=== PATIENT | male | born 1985 | race American Indian/Alaskan Native ===

== ENCOUNTER 2017-05-20 14:08 | Emergency (ER) | payer SELFPAY ==
--- NOTE | 2017-05-20 14:37 | CPEKG ---
Heart Rate: 77 RR Interval: 779 P-R Interval: 132 QRSD Interval: 88 QT Interval: 360 QTC Interval: 408 P Packwood: 59 QRS Packwood: 38 T Wave Packwood: 38 EKG Severity - NORMAL ECG - EKG Impression: SINUS RHYTHM Electronically Signed By: Clarisse Salazar 20-May-2017 20:06:38
--- NOTE | 2017-05-20 15:17 | EDPHY ---
H & P Time Seen by Provider: 05/20/17 15:06 HPI/ROS: CHIEF COMPLAINT: Chest pain HISTORY OF PRESENT ILLNESS: The patient is a 31-year-old male who presents emergency department with ongoing chest pain for the past 2 months. He states it is intermittent. It is worse today. He has had constant for the past 3 hours. It is left-sided under his breast. It does not radiate. No shortness of breath or chest pain. No cough. No leg pain or swelling. No recent travel. It is not positional. It is not worse with a deep breath. REVIEW OF SYSTEMS: My complete review of systems is negative except as mentioned in the HPI. Past Medical/Surgical History: Denies Social history: The patient uses THC. Smoking Status: Never smoked Physical Exam: Vitals noted GENERAL: Well-appearing, in no acute distress, alert. HEENT: Eyes normal to inspection, normal pharynx, no signs of dehydration. NECK: No thyromegaly, no lymphadenopathy, supple. RESPIRATORY: Clear to auscultation bilaterally, no rales, rhonchi or wheezing. CVS: Regular rate and rhythm, no rubs, murmurs, or gallops. No chest wall pain. ABDOMEN: Soft, nontender, nondistended, no organomegaly. BACK: Normal to inspection, no CVA tenderness. SKIN: Normal color, no rash, warm, dry. No pallor. EXTREMITIES: No pedal edema, no calf tenderness, no Homans sign or cords, no joint swelling. NEURO/PSYCH: [Alert and oriented x3, normal mood and affect, normal motor sensory exam. Constitutional: Initial Vital Signs Heart Rate 77 05/20/17 14:22 Respiratory Rate 18 05/20/17 14:22 Blood Pressure 130/80 H 05/20/17 14:22 O2 Sat (%) 95 05/20/17 14:22 O2 Delivery Mode Room Air Allergies/Adverse Reactions: No Known Allergies Allergy (Unverified 05/20/17 14:25) Medical Decision Making - Diagnostics EKG Interpretation: EKG shows normal sinus rhythm, normal rate, normal axis, normal intervals. There are no ST or T-wave abnormalities. EKG is normal as interpreted by me. Imaging Results: Imaging Impressions Chest X-Ray 05/20/17 15:43 Impression: No significant radiographic abnormality. Specifically, a source for chest pain is not identified. ED Course/Re-evaluation: In the emergency department I discussed possible etiologies with the patient. I answered all his questions. An IV was placed. Laboratory studies, EKG and chest x-ray were ordered. Patient was given Toradol 30 mg IV. I reviewed the patient's laboratory studies. He had a mildly elevated white count. Troponin was negative. The chest x-ray: No acute disease noted. I rechecked the patient. He stated his pain improved. I discussed these results. I answered his questions. He is given warnings prior to leaving. He will return with worsening symptoms. Differential Diagnosis: My differential includes but is not limited to ACS, acute AR, pulmonary embolus , pneumonia, bronchitis, dissection, aneurysm, pericarditis, myocarditis, pleurisy - Data Points Laboratory Results: Laboratory Results 05/20/17 14:39 05/20/17 14:39 05/20/17 05/20/17 14:39 14:39 WBC 12.19 10^3/uL H 10^3/uL (3.80-9.50) RBC 5.02 10^6/uL 10^6/uL (4.40-6.38) Hgb 15.9 g/dL g/dL (13.7-17.5) Hct 45.4 % % (40.0-51.0) MCV 90.4 fL fL (81.5-99.8) MCH 31.7 pg pg (27.9-34.1) MCHC 35.0 g/dL g/dL (32.4-36.7) RDW 12.5 % % (11.5-15.2) Plt Count 217 10^3/uL 10^3/uL (150-400) MPV 10.7 fL fL (8.7-11.7) Neut % (Auto) 76.3 % H % (39.3-74.2) Lymph % (Auto) 14.8 % L % (15.0-45.0) Rosebud % (Auto) 7.0 % % (4.5-13.0) Eos % (Auto) 1.1 % % (0.6-7.6) Baso % (Auto) 0.4 % % (0.3-1.7) Nucleat RBC Rel Count 0.0 % % (0.0-0.2) Absolute Neuts (auto) 9.31 10^3/uL H 10^3/uL (1.70-6.50) Absolute Lymphs (auto) 1.80 10^3/uL 10^3/uL (1.00-3.00) Absolute Monos (auto) 0.85 10^3/uL H 10^3/uL (0.30-0.80) Absolute Eos (auto) 0.13 10^3/uL 10^3/uL (0.03-0.40) Absolute Basos (auto) 0.05 10^3/uL 10^3/uL (0.02-0.10) Absolute Nucleated RBC 0.00 10^3/uL 10^3/uL (0-0.01) Immature Gran % 0.4 % % (0.0-1.1) Immature Gran # 0.05 10^3/uL 10^3/uL (0.00-0.10) Sodium 141 mEq/L mEq/L (134-144) Potassium 4.1 mEq/L mEq/L (3.5-5.2) Chloride 110 mEq/L mEq/L (97-110) Carbon Dioxide 23 mEq/l mEq/l (22-31) Anion Gap 8 mEq/L mEq/L (8-16) BUN 14 mg/dL mg/dL (7-23) Creatinine 0.9 mg/dL mg/dL (0.7-1.3) Estimated GFR > 60 Glucose 110 mg/dL H mg/dL (70-100) Calcium 8.7 mg/dL mg/dL (8.5-10.4) Troponin I < 0.012 ng/mL ng/mL (0.000-0.034) Medications Given: Discontinued Medications Cephalexin HCl (Keflex) 500 mg PO EDNOW ONE PRN Reason: Protocol Stop: 05/20/17 15:22 Last Admin: 05/20/17 15:43 Dose: Not Given Sodium Chloride (Ns) 500 mls @ 1,000 mls/hr IV EDNOW ONE PRN Reason: Protocol Stop: 05/20/17 16:12 Last Admin: 05/20/17 15:51 Dose: 500 mls Ketorolac Tromethamine (Toradol) 30 mg IVP EDNOW ONE Stop: 05/20/17 15:44 Last Admin: 05/20/17 15:48 Dose: 30 mg Departure - Departure Disposition: Home, Routine, Self-Care Clinical Impression: Chest pain Qualifiers: Chest pain type: precordial pain Qualified Code(s): R07.2 - Precordial pain Condition: Good Instructions: Chest Pain (ED) Additional Instructions: Return with increasing chest pain, shortness of breath or any other concerns. Referrals: Ernesto Ta MD [[facility] [place] Primary Care Provider] - 3-4 days, if not improved [facility] [Provider Group] - As per Instructions
[2017-05-20] MEDS ORDERED: CEPHALEXIN 500 MG CAP PO ONE (15:21)
[2017-05-20] MEDS ORDERED: KETOROLAC 30 MG/1 ML SDV IVP ONE (15:43)
[2017-05-20] MEDS ORDERED: NS 500 ML IV ONE (15:43)
[2017-05-20 15:47] LABS: % IMMATURE GRANULYOCYTES 0.4 % (0.0-1.1); ABSOLUTE IMMATURE GRANULOCYTES 0.05 10^3/uL (0.00-0.10); ADD DIFF? NO; ADD MORPH? NO; ADD SCAN? NO; ATYPICAL LYMPHOCYTE FLAG 0 (0-99); FRAGMENT RBC FLAG 0 (0-99); HEMATOCRIT 45.4 % (40.0-51.0); HEMOGLOBIN 15.9 g/dL (13.7-17.5); LEFT SHIFT FLG 0 (0-99); LIPEMIA HEMOLYSIS FLAG 90 (0-99); MEAN CELL HEMOGLOBIN 31.7 pg (27.9-34.1); MEAN CELL VOLUME 90.4 fL (81.5-99.8); MEAN PLATELET VOLUME 10.7 fL (8.7-11.7); PLATELET CLUMPS FLAG 0 (0-99); PLATELET COUNT 217 10^3/uL (150-400); RED BLOOD CELL COUNT 5.02 10^6/uL (4.40-6.38); RED CELL DISTRIBUTION WIDTH 12.5 % (11.5-15.2)
[2017-05-20 15:53] LABS: ANION GAP 8 mEq/L (8-16); CALCIUM 8.7 mg/dL (8.5-10.4); CARBON DIOXIDE 23 mEq/l (22-31); CHLORIDE 110 mEq/L (97-110); CREATININE 0.9 mg/dL (0.7-1.3); GLOMERULAR FILTRATION RATE > 60; GLUCOSE 110 mg/dL (70-100); POTASSIUM 4.1 mEq/L (3.5-5.2); SODIUM 141 mEq/L (134-144)
[2017-05-20 16:05] LABS: TROPONIN I < 0.012 ng/mL (0.000-0.034)
[2017-05-20 17:42] VITALS: BP 141/78; PULSE 76; RESP 12; TEMP 97.9; O2SAT 97
== END 2017-05-20 17:42 | disposition home or self-care (01) ==
DX: R07.2 Precordial pain (principal); E86.9 Volume depletion, unspecified
CPT/HCPCS: 96374; J1885